=== PATIENT | female | born 1995 | race Two or more races ===

== ENCOUNTER 2023-10-07 15:01 | Emergency (ER) | payer MEDICAID ==
[~2023-10-07] VITALS: Ht 177.8 cm; Wt 91.7 kg
[2023-10-07 15:46] VITALS: BP 126/61; PULSE 80; RESP 18; TEMP 97.7; O2SAT 98
== END 2023-10-07 17:59 | disposition home or self-care (01) ==
LOC: ER 15:01
DX: O20.0 Threatened abortion (principal); R10.2 Pelvic and perineal pain; Z3A.01 Less than 8 weeks gestation of pregnancy
CPT/HCPCS: 36415; 76801; 84702